=== PATIENT | female | born 1960 | race American Indian/Alaskan Native ===

== ENCOUNTER 2019-08-09 02:17 | Emergency (ER) | payer MEDICARE ==
[2019-08-09] MEDS ORDERED: TETANUS,DIPH,PERTUSS(ACELL) VACCINE 0.5 ML SYRINGE IM ONE ×2 (02:41→06:30)
--- NOTE | 2019-08-09 03:21 | Cat Scan Report ---
Head CT without intravenous contrast INDICATION: Indication COMPARISON: None FINDINGS: Moderate cortical and central atrophy is seen without significant hydrocephalus. There is n o acute hemorrhage identified. Along the left cerebral convexity there is a chronic subdural hematoma measuring 1.9 cm in greatest diameter. This is of water attenuation and again appears chronic. There is only mild mass effect from the chronic subdural hematoma. There is no right-sided subdural again no acute hemorrhage is seen. There is no focal infarct identified. No skull fracture or scalp hematom a is seen. Sinuses are clear with the mastoid air cells well aerated. No definite acute abnormality. IMPRESSION: Chronic left subdural hematoma with mild mass effect. No acute abnormality. Automated exposure control was utilized to diminish radiation dose Signer Name: Min Williamson MD Signed: 08/09/2019 3:16 AM Workstation Name: [id number]
[2019-08-09 03:31] LABS: Hematocrit 44.8 % (30.3-42.9); Hemoglobin 14.9 gm/dl (10.1-14.3); Mean Corpuscular HGB Conc 33 % (30-34); Mean Corpuscular Volume 94 fl (79-97); Platelet Count 344 K/mm3 (140-440); Red Blood Count 4.74 M/mm3 (3.65-5.03)
[2019-08-09 03:35] LABS: BUN/Creatinine Ratio 9; Blood Urea Nitrogen 10 mg/dL (7-17); Calcium 9.1 mg/dL (8.4-10.2); Hemolysis Index 16
[2019-08-09] MEDS ORDERED: POTASSIUM CHLORIDE ER 20 MEQ TAB PO ONE (04:40)
[2019-08-09] MEDS ORDERED: POTASSIUM CHLORIDE 10 MEQ 10 MEQ/100 ML BAG IV ONE (04:46)
--- NOTE | 2019-08-09 04:56 | Emergency Department Report ---
ED Fall HPI - General Chief Complaint: Fall Stated Complaint: FELL AND HIT HEAD/BLEEDING Source: patient, family Mode of arrival: Ambulatory - History of Present Illness Initial Comments: Patient is a 59-year-old female that presents emergency room with complaints of a head injury. Patient sustained a laceration to the back of her head. History of present family and patient. Family states the patient was getting off the toilet and fell and hit the back of her head on the tub. Patient states she f elt dizzy and weak just prior to getting off the toilet. Patient states she is still feeling weak and dizzy as well as some confusion. Patient states she is having a headache with a pain at a 10 out of 10. Patient states the pain is better with rest and worse with movement. MD Complaint: fall -: Sudden Fall From: standing When Fall Occurred: just prior to arrival Fall Witnessed: no Place Fall Occurred: home Loss of Consciousness: none Prolonged Down Time?: no Symptoms Prior to Fall: lightheadedness Location: head Severity: severe Severity scale (0 -10): 9 Quality: sharp Context: tripped/slipped Associated Symptoms: headache, weakness, lightheaded, confusion. denies: neck pain, numbness, chest paint, shortness of breath, abdominal pain, hematuria - Related Data Allergies Allergy/AdvReac Type Severity Reaction Status Date / Time aspirin Allergy Vomiting Verified 08/09/19 07:06 hydrocodone Allergy Vomiting Verified 08/09/19 07:06 ED Review of Systems ROS: Stated complaint: FELL AND HIT HEAD/BLEEDING Other details as noted in HPI Constitutional: denies: chills, fever Eyes: denies: eye pain, eye discharge, vision change ENT: denies: ear pain, throat pain Respiratory: denies: cough, shortness of breath, wheezing Cardiovascular: denies: chest pain, palpitations Endocrine: no symptoms reported Gastrointestinal: denies: abdominal pain, nausea, diarrhea Genitourinary: denies: urgency, dysuria, discharge Musculoskeletal: denies: back pain, joint swelling, arthralgia Skin: denies: rash, lesions Neurological: headache, weakness, confusion. denies: paresthesias Psychiatric: denies: anxiety, depression Hematological/Lymphatic: denies: easy bleeding, easy bruising ED Past Medical Hx - Past Medical History Previous Medical History?: Yes Hx CVA: Yes Hx Heart Attack/AMI: Yes Hx Diabetes: Yes Hx Asthma: Yes Additional medical history: Neuropathy, vascular DZ - Surgical History Past Surgical History?: No - Family History Family history: no significant - Social History Smoking Status: Current Every Day Smoker Substance Use Type: None ED Physical Exam - General Limitations: Physical Limitation General appearance: alert, in no apparent distress - Head Head exam: Present: other (occipital laceration noted) - Eye Eye exam: Present: normal appearance, PERRL Pupils: Present: normal accommodation - ENT ENT exam: Present: mucous membranes moist - Neck Neck exam: Present: normal inspection - Respiratory Respiratory exam: Present: normal lung sounds bilaterally. Absent: respiratory distress - Cardiovascular Cardiovascular Exam: Present: regular rate, normal rhythm. Absent: systolic murmur, diastolic murmur, rubs, gallop - GI/Abdominal GI/Abdominal exam: Present: soft, normal bowel sounds - Extremities Exam Extremities exam: Present: normal inspection - Back Exam Back exam: Present: normal inspection - Neurological Exam Neurological exam: Present: alert, oriented X3 - Psychiatric Psychiatric exam: Present: normal affect, normal mood - Skin Skin exam: Present: warm, dry, normal color, other (laceration to scalp.). Absent: rash ED Course Vital Signs 08/09/19 08/09/19 08/09/19 02:35 04:28 04:30 Temperature 97.8 F Pulse Rate 103 H 84 83 Respiratory 16 13 13 Rate Blood Pressure 127/97 109/50 O2 Sat by Pulse 96 Oximetry 08/09/19 08/09/19 08/09/19 05:00 05:30 06:00 Temperature Pulse Rate 84 82 82 Respiratory 13 18 14 Rate Blood Pressure 105/55 111/51 113/50 O2 Sat by Pulse 99 Oximetry - Reevaluation(s) Reevaluation #1: I discussed plan of care with family and patient. Family patient with plan of care and transfer. I discussed all results with patient. 08/09/19 05:01 - Consultations Consultation #1: Discussed case with hospitalist on the hospitalist recommends transfer. 08/09/19 04:59 Consultation #2: I discussed case with Dr. Contreras, trauma attending at [facility]. Dr. Contreras has accepted the patient to be transferred from ER to ER. 08/09/19 05:07 ED Medical Decision Making - Lab Data Result diagrams: 08/09/19 02:46 08/09/19 02:46 - Radiology Data Radiology results: report reviewed Head CT without intravenous contrast INDICATION: Indication COMPARISON: None FINDINGS: Moderate cortical and central atrophy is seen without significant hydrocephalus. There is no acute hemorrhage identified. Along the left cerebral convexity there is a chronic subdural he matoma measuring 1.9 cm in greatest diameter. This is of water attenuation and again appears chronic. There is only mild mass effect from the chronic subdural hematoma. There is no right-sided subdural again no acute hemorrhage is seen. There is no focal infarct identified. No skull fracture or scalp hematoma is seen. Sinuses are clear with the mastoid air cells well aerated. No definite acute abnormality. IMPRESSION: Chronic left subdural hematoma with mild mass effect. No acute abnormality. - Medical Decision Making Patient is a 59-year-old female that presents status post fall and head injury. Patient's CT done and found to have a chronic subdural. Patient transferred to [facility] trauma team. Patient will be transferred from here to [facility] for further evaluation and treatment. Patient also on hypokalemia. Patient given a Stanton. Patient sustained a laceration to the occipital region. Wound care was done. - Differential Diagnosis head injury, intracranial hemorrhage, dizziness, lightheadedness, lac Critical Care Time: Yes Critical care time in (mins) excluding proc time.: 35 Critical care attestation.: If time is entered above; I have spent that time in minutes in the direct care of this critically ill patient, excluding procedure time. Critical Care Time: 35 minutes ED Disposition Clinical Impression: Subdural hematoma, Hypokalemia Head injury Qualifiers: Encounter type: initial encounter Qualified Code(s): S09.90XA - Unspecified injury of head, initial encounter Scalp laceration Qualifiers: Encounter type: initial encounter Qualified Code(s): S01.01XA - Laceration without foreign body of scalp, initial encounter Disposition: DC/TX-70 ANOTHER TYPE HLTHCARE Is pt being admited?: No Does the pt Need Aspirin: No Condition: Critical Time of Disposition: 05:04
[2019-08-09] MEDS ORDERED: POTASSIUM CHLORIDE 10 MEQ 10 MEQ/100 ML BAG IV SCH (05:00)
[2019-08-09 06:27] VITALS: BP 113/50
== END 2019-08-09 06:45 | disposition other institution (70) ==
LOC: ED 02:17
DX: S06.5X9A Traumatic subdural hemorrhage with loss of consciousness of unspecified duration, initial encounter (principal); S01.01XA Laceration without foreign body of scalp, initial encounter; E87.6 Hypokalemia; I21.9 Acute myocardial infarction, unspecified; E11.9 Type 2 diabetes mellitus without complications; J45.909 Unspecified asthma, uncomplicated; F17.200 Nicotine dependence, unspecified, uncomplicated; Z86.73 Personal history of transient ischemic attack (TIA), and cerebral infarction without residual deficits; Z88.6 Allergy status to analgesic agent; Z88.8 Allergy status to other drugs, medicaments and biological substances; W19.XXXA Unspecified fall, initial encounter; Y93.89 Activity, other specified; Y92.89 Other specified places as the place of occurrence of the external cause; Y99.8 Other external cause status
CPT/HCPCS: 36415; 70450; 80048; 82962; 84484; 85025; 93005; 93010; 96365; 99291; J3480; 90715

== ENCOUNTER 2019-08-25 20:04 | Emergency (ER) | payer MEDICARE ==
--- NOTE | 2019-08-25 20:33 | Event Note ---
ED Screening Note Date of service: 08/25/19 Time: 20:26 ED Screening Note: Pt complains of right shoulder and hand pain after a fall x today pt unsure if fall was mechanical hx of stroke This initial assessment/diagnostic orders/clinical plan/treatment(s) is/are subject to change based on patients health status, clinical progression and re- assessment by fellow clinical providers in the ED. Further treatment and workup at subsequent clinical providers discretion. Patient/guardian urged not to elope from the ED as their condition may be serious if not clinically assessed and managed. Initial orders include: XRs labs
--- NOTE | 2019-08-25 21:37 | XRay Report ---
RIGHT SHOULDER 2 VIEWS INDICATION / CLINICAL INFORMATION: fall injury COMPARISON: None available. FINDINGS: BONES / JOINT(S): Humeral neck fracture with superior displacement of the distal fragment. The articu lar surface of the humeral head is rotated. SOFT TISSUES: No significant abnormality. ADDITIONAL FINDINGS: None. Signer Name: Eder Chen MD Signed: 08/25/2019 9:33 PM Workstation Name: [id number]
--- NOTE | 2019-08-25 21:40 | XRay Report ---
RIGHT HAND 3 VIEW(S) INDICATION / CLINICAL INFORMATION: fall injury COMPARISON: None available. FINDINGS: Suboptimal positioning was employed. Within this limitation, no acute fracture or osseous m alalignment is identified. Mild changes of osteoarthrosis at the thumb carpometacarpal and metacarpop halangeal joints and a few of the interphalangeal joints. No soft tissue swelling is identified. Signer Name: Antonio Bray MD Signed: 08/25/2019 9:35 PM Workstation Name: [id number]
[2019-08-25 22:03] LABS: Basophils % (Auto) 0.4 % (0.0-1.8); Eosinophils # (Auto) 0.1 K/mm3 (0.0-0.4); Eosinophils % (Auto) 0.7 % (0.0-4.3); Hematocrit 39.3 % (30.3-42.9); Hemoglobin 12.8 gm/dl (10.1-14.3); Lymphocytes # (Auto) 2.2 K/mm3 (1.2-5.4); Lymphocytes % (Auto) 19.3 % (13.4-35.0); Mean Corpuscular HGB Conc 33 % (30-34); Mean Corpuscular Volume 95 fl (79-97); Monocytes # (Auto) 0.4 K/mm3 (0.0-0.8); Monocytes % (Auto) 3.6 % (0.0-7.3); Platelet Count 343 K/mm3 (140-440); Red Blood Count 4.16 M/mm3 (3.65-5.03); Red Cell Distribution Width 13.2 % (13.2-15.2)
[2019-08-25 22:27] LABS: Alanine Aminotransferase 26 units/L (7-56); Albumin 3.5 g/dL (3.9-5); BUN/Creatinine Ratio 11; Blood Urea Nitrogen 9 mg/dL (7-17); Calcium 9.2 mg/dL (8.4-10.2); Hemolysis Index 30
[2019-08-26] MEDS ORDERED: SODIUM CHLORIDE 0.9% 1000 ML 1,000 ML IV ONE
--- NOTE | 2019-08-26 00:05 | Emergency Department Report ---
HPI - General Chief Complaint: Fall Time Seen by Provider: 08/25/19 20:34 - [facility] HPI: Room 10 The patient is a 5-year-old female presenting with chief complaint of right shoulder and right hand pain after fall. This evening at approximately 19:45 the patient lost her balance and fell backwards off of one step. The patient injured her right shoulder and right hand. There was no loss of consciousness. Patient denies any other forms of pain ED Past Medical Hx - Past Medical History Previous Medical History?: Yes Hx CVA: Yes Hx Heart Attack/AMI: Yes Hx Diabetes: Yes Hx Asthma: Yes Additional medical history: Neuropathy, vascular DZ - Surgical History Hx Open Heart Surgery: Yes Additional Surgical History: Lower extremity stents. Right great toe amputation - Family History Family history: no significant - Social History Smoking Status: Never Smoker Substance Use Type: None - Medications Home Medications: Home Medications Medication Instructions Recorded Confirmed Last Taken Type oxyCODONE /ACETAMINOPHEN [Percocet 1 - 2 tab PO Q6HR PRN #30 tablet 08/26/19 Unknown Rx 5/325] ED Review of Systems ROS: Stated complaint: FALL Other details as noted in HPI Constitutional: no symptoms reported Eyes: denies: eye pain ENT: denies: throat pain Respiratory: no symptoms reported Cardiovascular: denies: chest pain Endocrine: no symptoms reported Gastrointestinal: denies: abdominal pain Genitourinary: denies: dysuria Musculoskeletal: arthralgia, myalgia Neurological: denies: headache Physical Exam - Physical Exam Vital Signs: Vital Signs 08/25/19 08/25/19 08/25/19 20:09 20:31 20:33 Temperature 97.5 F L 97.5 F L Pulse Rate 73 73 Respiratory 18 18 Rate Blood Pressure 82/29 86/46 Blood Pressure 98/60 [Right] O2 Sat by Pulse 97 100 Oximetry Vital Signs 08/25/19 08/25/19 08/25/19 20:09 20:31 20:33 Temperature 97.5 F L 97.5 F L Pulse Rate 73 73 Respiratory 18 18 Rate Blood Pressure 82/29 86/46 Blood Pressure 98/60 [Right] O2 Sat by Pulse 97 100 Oximetry 08/26/19 08/26/19 08/26/19 00:06 01:00 01:05 Temperature Pulse Rate 74 78 Respiratory 20 20 20 Rate Blood Pressure Blood Pressure 96/45 110/45 [Right] O2 Sat by Pulse 100 99 Oximetry 08/26/19 08/26/19 02:00 02:29 Temperature Pulse Rate 81 82 Respiratory 20 20 Rate Blood Pressure Blood Pressure 112/52 114/47 [Right] O2 Sat by Pulse 97 100 Oximetry Physical Exam: GENERAL: The patient is well-developed well-nourished female lying on stretcher not appearing to be in acute distress. [] HEENT: Normocephalic. Atraumatic. Extraocular motions are intact. Patient has moist mucous membranes. NECK: Supple. No axial tenderness to palpation. No axial step off CHEST/LUNGS: There is no respiratory distress noted. HEART/CARDIOVASCULAR: Regular. There is no tachycardia. 2+ right radial pulse ABDOMEN: Abdomen is soft, nontender. Patient has normal bowel sounds. There is no abdominal distention. SKIN: There is a subacute apparently healing laceration over the dorsum of the right middle finger NEURO: The patient is awake, alert, and oriented. The patient is cooperative. The patient has no focal neurologic deficits. The patient has normal speech MUSCULOSKELETAL: There is pain in the right shoulder ED Course Vital Signs 08/25/19 08/25/19 08/25/19 20:09 20:31 20:33 Temperature 97.5 F L 97.5 F L Pulse Rate 73 73 Respiratory 18 18 Rate Blood Pressure 82/29 86/46 Blood Pressure 98/60 [Right] O2 Sat by Pulse 97 100 Oximetry ED Medical Decision Making - Lab Data Result diagrams: 08/25/19 21:36 08/25/19 21:36 Laboratory Tests 08/25/19 08/25/19 21:36 21:36 WBC 11.2 H RBC 4.16 Hgb 12.8 Hct 39.3 MCV 95 MCH 31 MCHC 33 RDW 13.2 Plt Count 343 Lymph % (Auto) 19.3 [place] % (Auto) 3.6 Eos % (Auto) 0.7 Baso % (Auto) 0.4 Lymph # 2.2 [place] # 0.4 Eos # 0.1 Baso # 0.0 Seg Neutrophils % 76.0 H Seg Neutrophils # 8.5 H Sodium 138 Potassium 3.8 Chloride 102.8 Carbon Dioxide 22 Anion Gap 17 BUN 9 Creatinine 0.8 Estimated GFR > 60 BUN/Creatinine Ratio 11 Glucose 153 H Calcium 9.2 Total Bilirubin 0.20 AST 16 ALT 26 Alkaline Phosphatase 109 Troponin T < 0.010 Total Protein 5.8 L Albumin 3.5 L Albumin/Globulin Ratio 1.5 - Radiology Data Radiology results: report reviewed (right shoulder x-ray, right hand x-ray), image reviewed (right shoulder x-ray, right hand x-ray) interpreted by me: Right shoulder [id number] neck fracture Right hand x-ray-no acute fracture seen - Differential Diagnosis humerus fracture, hand fracture Critical care attestation.: If time is entered above; I have spent that time in minutes in the direct care of this critically ill patient, excluding procedure time. ED Disposition Clinical Impression: Fracture of neck of right humerus Disposition: TO HOME OR SELFCARE Is pt being admited?: No Does the pt Need Aspirin: No Condition: Stable Instructions: Arm Fracture in Adults (ED) Additional Instructions: Return to the emergency department should you develop worsening symptoms, inability to tolerate food or liquids, high fever or any other concerns Prescriptions: oxyCODONE /ACETAMINOPHEN [Percocet 5/325] 1 - 2 tab PO Q6HR PRN #30 tablet PRN Reason: Pain Referrals: DONALDO HARTLEY MD [Staff Physician] - [facility] (Dr. Hartley is an orthopedic surgeon. Please follow up with him for further evaluation) Time of Disposition: 02:41
[2019-08-26] MEDS ORDERED: ONDANSETRON 4 MG/2 ML INJ IV ONE (00:10)
[2019-08-26] MEDS ORDERED: fentaNYL 100 MCG/2 ML INJ IV ONE (00:10)
[2019-08-26] MEDS ORDERED: NEOMY 3.5 MG/BACIT 400 UNITS/POLY B 5000 UNITS/GM OINT PACKET TP ONE (02:44)
[2019-08-26 03:01] VITALS: BP 114/47
== END 2019-08-26 03:40 | disposition home or self-care (01) ==
LOC: ED 20:04
DX: S42.211A Unspecified displaced fracture of surgical neck of right humerus, initial encounter for closed fracture (principal); I25.2 Old myocardial infarction; E11.9 Type 2 diabetes mellitus without complications; J45.909 Unspecified asthma, uncomplicated; Z98.890 Other specified postprocedural states; W10.9XXA Fall (on) (from) unspecified stairs and steps, initial encounter; Y93.89 Activity, other specified; Y92.89 Other specified places as the place of occurrence of the external cause; Y99.8 Other external cause status
CPT/HCPCS: 29105; 36415; 73030; 73130; 80053; 84484; 85025; 96361; 96374; 96375; 99284; J2405; J3010; J7030; A6250

== ENCOUNTER 2019-09-10 14:32 | Outpatient (CLI) | payer MEDICARE ==
--- NOTE | 2019-09-10 16:00 | Cat Scan Report ---
CT UPPER EXTREMITY RIGHT WITHOUT CONTRAST INDICATION : PAIN IN RIGHT ARM. TECHNIQUE: Axial imaging performed through the right shoulder without the use of contrast. All CT s cans at this location are performed using CT dose reduction for ALARA by means of automated exposure control. COMPARISON: Right shoulder films performed 08/25/2019 FINDINGS: Comminuted and mildly displaced/angulated right humeral neck fracture appears unchanged in position and alignment since 08/25/2019 exam. No evidence for intra-articular extension at the glenohum eral joint or dislocation. No significant joint pathology. Minimal calcified callus is identified sug gesting minimal interval healing. The right clavicle, right scapula and visualized right ribs are int act. IMPRESSION: Minimal calcified callus is identified at the right humeral neck fracture site since 2019. Mild displacement and angulation at the fracture site remains. The remaining bony structures ar e intact. Signer Name: Karl Lara Jr, MD Signed: 09/10/2019 3:55 PM Workstation Name: [id number]
== END 2019-09-10 14:33 | disposition home or self-care (01) ==
LOC: CT 14:32
PROVIDERS: ATTEND Orthopaedic Surgery
DX: M25.711 Osteophyte, right shoulder (principal)

== ENCOUNTER 2019-09-12 06:08 | Day surgery (SDC) | payer MEDICARE ==
[~2019-09-12 06:08] MED LIST: LACTATED RINGERS 1,000 ML IV SCH; ceFAZolin/Water 2 GM/20 ML 2 GM/20 ML SYRINGE IV NR
--- NOTE | 2019-09-12 07:25 | Anesthesia Consultation ---
Anesthesia Consult and Med Hx Date of service: 09/12/19 - Airway Anesthetic Teeth Evaluation: Good, Dentures ROM Head & Neck: Adequate Mental/Hyoid Distance: Adequate Mallampati Class: Class II Intubation Access Assessment: Good - Pulmonary Exam CTA: Yes - Cardiac Exam Cardiac Exam: RRR - Pre-Operative Health Status ASA Pre-Surgery Classification: ASA3 Proposed Anesthetic Plan: General Nerve Block: IS - Pulmonary Hx Smoking: Yes (3 PER DAY X 45 YRS) Hx Asthma: Yes (INHALER PRN) Hx Sleep Apnea: No (ARMIDA PRE SCREEN LOW RISK.) - Cardiovascular System Hx Hypertension: No Hx Heart Attack/AMI: No Hx Angina: No Hx Peripheral Vascular Disease: Yes (STENTS LOWER EXT.) - Central Nervous System CVA: Yes (2008 , RIGHT SIDED WEAKNESS , SOME SLURRED SPEACH) - Endocrine Hx Non-Insulin Dependent Diabetes: Yes - Other Systems Hx Cancer: No
--- NOTE | 2019-09-12 07:26 | Anesthesia Day of Surgery ---
Anesthesia Day of Surgery - Day of Surgery Patient Examined: Yes Patient H&P Reviewed: Yes Patient is NPO: Yes
[2019-09-12] MEDS ORDERED: dexAMETHasone 4 MG/ML VIAL IV NR (08:00)
[2019-09-12] MEDS ORDERED: MIDAZOLAM 2 MG/2 ML INJ IV NR (08:00)
[2019-09-12] MEDS ORDERED: CELECOXIB 200 MG CAP PO NR (08:00)
[2019-09-12] MEDS ORDERED: GABAPENTIN 300 MG CAP PO NR (08:00)
[2019-09-12] MEDS ORDERED: BUPIVACAINE/PF (0.5%) 5 MG/1 ML 10 ML VIAL INFILTRATI NR (08:00)
[2019-09-12] MEDS ORDERED: FAMOTIDINE 20 MG TAB PO NR (08:00)
[2019-09-12] MEDS ORDERED: HYDROmorphone 1 MG/1 ML INJ ONE (09:11)
[2019-09-12] MEDS ORDERED: LIDOCAINE MPF (2%) 20 MG/1 ML VIAL 5 ML ONE (09:12)
[2019-09-12] MEDS ORDERED: PROPOFOL 200 MG/20 ML VIAL IV ONE (09:12)
[2019-09-12] MEDS ORDERED: PHENYLEPHRINE/NS 1,000 MCG/10 ML SYRINGE (OR USE) IV ONE (10:24)
[2019-09-12] MEDS ORDERED: ONDANSETRON 4 MG/2 ML INJ ONE (10:57)
--- NOTE | 2019-09-12 11:58 | Procedure Note ---
Date of procedure: 09/12/19 Pre-op diagnosis: displaced right proximal humerus fracture Post-op diagnosis: same Procedure: Closed reduction insertion of intramedullary nail right proximal humerus Procedure Patient was brought to the OR after being given a scalene nerve block in preop erative holding patient was then transferred onto the OR table next the following induction intubation by anesthesia the patient was placed in a beachchair position C-arm fluoroscopy was used to evaluate the fracture next following this C-arm the right shoulder and arm was prepped and draped in the usual sterile manner. A timeout procedure was done to identify the patient and the correct operative site. An incision was made over the lateral border of the acromion and down distally about 2 cm this was then taken deep to the skin subcutaneous the deltoid fascia and onto the greater tuberosity again under C- arm direction an awl was used to enter the medullary canal this was followed by placement of a guidewire down across the fracture and into the distal portion of the humeral medullary canal following this a short proximal humeral nail was inserted and a antegrade fashion down across the fracture site using the targeting device and 3 screws were applied to the humeral head with the ali gnment jig in place the distal fragment was then locked with 2 screws again inserted inserted using the targeting device AP and lateral views were obtained showing good reduction of the fracture and placement of the hardware. Space following this the wounds were copiously irrigated and were repaired and a standard routine fashion the patient tolerated the procedure there were no complications he was then sent to postanesthesia recovery in a stable condition Anesthesia: MAC, regional Surgeon: DONALDO FINCH Fire Lieutenant: LISA NUNEZ Estimated blood loss: minimal Pathology: none Condition: stable Disposition: PACU
[2019-09-12] MEDS ORDERED: oxyCODONE /ACETAMINOPHEN 5-325MG TAB PO ONE (12:14)
[2019-09-12 12:22] VITALS: BP 118/58
--- NOTE | 2019-09-12 13:34 | XRay Report ---
INTRAOPERATIVE FLUOROSCOPY: RIGHT SHOULDER INDICATION: RT SHOULDER PAIN/FRACTURE/. TECHNIQUE: Intraoperative spot images were obtained during the procedure. FINDINGS: An intramedullary nail and multiple screws are seen spanning the proximal humerus and the previously described fracture. Alignment of the fracture is anatomic as visualized. Please see the operative rep ort for further details. Fluoroscopy Time: 33 seconds. Fluoroscopy Images: 2. Signer Name: John Franco MD Signed: 09/12/2019 1:30 PM Workstation Name: [id number]
== END 2019-09-12 12:42 | disposition home or self-care (01) ==
LOC: OR 06:08
PROVIDERS: ATTEND Orthopaedic Surgery
DX: S42.201A Unspecified fracture of upper end of right humerus, initial encounter for closed fracture (principal); J45.909 Unspecified asthma, uncomplicated; E11.42 Type 2 diabetes mellitus with diabetic polyneuropathy; G62.9 Polyneuropathy, unspecified; F32.9 Major depressive disorder, single episode, unspecified; F41.9 Anxiety disorder, unspecified; F17.210 Nicotine dependence, cigarettes, uncomplicated; Z88.6 Allergy status to analgesic agent; Z88.5 Allergy status to narcotic agent; Z79.82 Long term (current) use of aspirin; Z79.84 Long term (current) use of oral hypoglycemic drugs; Z79.899 Other long term (current) drug therapy; Z98.49 Cataract extraction status, unspecified eye; Z95.1 Presence of aortocoronary bypass graft; Z91.81 History of falling; Z98.890 Other specified postprocedural states; Z86.73 Personal history of transient ischemic attack (TIA), and cerebral infarction without residual deficits; X58.XXXA Exposure to other specified factors, initial encounter; Y93.89 Activity, other specified; Y92.89 Other specified places as the place of occurrence of the external cause; Y99.8 Other external cause status
CPT/HCPCS: 23605; 73030; 82962; C1713; C1769; J0690; J1100; J1170; J2250; J2370; J2405; J2704; J7120

== ENCOUNTER 2020-05-26 13:21 | Outpatient (CLI) | payer MEDICARE ==
--- NOTE | 2020-05-26 16:05 | XRay Report ---
CERVICAL SPINE 7 VIEWS INDICATION / CLINICAL INFORMATION: PAIN. COMPARISON: None available. FINDINGS: The C7 vertebral body is not well-seen on the lateral view. No significant skeletal abnormality is se en in the visualized portions of the cervical spine. Signer Name: Ishan Cao MD FACR Signed: 05/26/2020 4:01 PM Workstation Name: [id number]
--- NOTE | 2020-05-26 16:06 | XRay Report ---
RIGHT SHOULDER 4 VIEW(S) INDICATION / CLINICAL INFORMATION: Shoulder pain COMPARISON: 09/12/2019 FINDINGS: BONES / JOINT(S): No acute fracture or subluxation. Intramedullary betzy and screw fixation is noted of prior proximal humeral trauma. No evidence of hardware loosening or failure no dislocation SOFT TISSUES: No significant abnormality. ADDITIONAL FINDINGS: Prior sternotomy. Signer Name: Richard Walden MD Signed: 05/26/2020 4:02 PM Workstation Name: [id number]
== END 2020-05-26 13:22 | disposition home or self-care (01) ==
LOC: XRAY 13:21
PROVIDERS: ATTEND Orthopaedic Surgery
DX: S42.201D Unspecified fracture of upper end of right humerus, subsequent encounter for fracture with routine healing (principal); X58.XXXD Exposure to other specified factors, subsequent encounter
CPT/HCPCS: 72050

== ENCOUNTER → 2020-06-04 16:52 | Emergency (ER) | payer MEDICARE | END | disposition left against medical advice (07) | LOC: ED 16:52 | DX: M79.602 Pain in left arm (principal); M79.601 Pain in right arm; Z53.21 Procedure and treatment not carried out due to patient leaving prior to being seen by health care provider ==